=== PATIENT | female | born 1960 | race Caucasian/White ===

== ENCOUNTER → 2016-08-21 | Outpatient (CLI) | payer OTHER | LOC: MMPC 09:00 | PROVIDERS: ATTEND Physician Assistant Medical | DX: J01.00 Acute maxillary sinusitis, unspecified (principal); F32.1 Major depressive disorder, single episode, moderate | CPT/HCPCS: 99213; G0463 ==

== ENCOUNTER → 2016-09-14 | Outpatient (CLI) | payer OTHER | LOC: MMPC 09:00 | PROVIDERS: ATTEND Physician Assistant Medical | DX: R42 Dizziness and giddiness (principal); F32.2 Major depressive disorder, single episode, severe without psychotic features; Z87.74 Personal history of (corrected) congenital malformations of heart and circulatory system | CPT/HCPCS: 99213; G0463 ==

== ENCOUNTER → 2016-10-02 | Outpatient (CLI) | payer OTHER ==
--- NOTE | 2016-10-02 16:45 | DI ---
LEFT KNEE, 10/02/2016 10:08 AM: Clinical History: Left knee pain. Previous Exam: None at this facility. 4 views are submitted. The AP and tunnel projections are weight bearing views. There is no acute soft tissue, osseous, or joint abnormality. There is moderate narrowing of the medial compartment consist ent with degenerative arthritis. There is osteoporosis. Reading: Moderate degenerative arthritis of the medial compartment.
--- NOTE | 2016-10-02 16:48 | DI ---
RIGHT KNEE, 10/02/2016 10:08 AM: Clinical History: Right knee pain. Previous Exam: None at this facility. 4 views are submitted. The AP and tunnel projections are weight bearing views. There is no acute soft tissue, osseous, or joint abnormality. Moderate narrowing of the medial compartment is present indic ating degenerative arthritis. Reading: Degenerative arthritis of the medial compartment.
== END ==
LOC: ORTHO 10:36
PROVIDERS: ATTEND Orthopaedic Surgery
DX: M25.561 Pain in right knee (principal); M25.562 Pain in left knee; M17.0 Bilateral primary osteoarthritis of knee
CPT/HCPCS: 73564; 99203

== ENCOUNTER → 2016-10-05 | Outpatient (CLI) | payer OTHER | LOC: MMPC 09:00 | PROVIDERS: ATTEND Physician Assistant Medical | DX: R53.82 Chronic fatigue, unspecified (principal); Z98.890 Other specified postprocedural states | CPT/HCPCS: 99213; G0463 ==

== ENCOUNTER → 2016-10-08 | Outpatient (CLI) | payer OTHER, BC ==
[2016-10-08 13:10] LABS: BASOPHILS # (AUTO) 0.04 10*3/UL; BASOPHILS % (AUTO) 0.8 % (0-1); EOSINOPHILS # (AUTO) 0.11 10*3/UL; EOSINOPHILS % (AUTO) 2.3 % (0-8); HEMATOCRIT 41.4 % (37.0-47.0); HEMOGLOBIN 12.9 g/dL (12.0-16.0); LYMPHOCYTES # (AUTO) 1.66 10*3/uL; MEAN CORPUSCULAR HEMOGLOBIN 27.6 PG (27-31); MEAN CORPUSCULAR HGB CONC 31.2 g/dL (33-37); MEAN CORPUSCULAR VOLUME 88.5 FL (81-99); MONOCYTES # (AUTO) 0.36 10*3/UL (0.3-0.8); MONOCYTES % (AUTO) 7.4 % (5-15); NEUTROPHILS # (AUTO) 2.71 10*3/UL; NEUTROPHILS % (AUTO) 55.5 % (50-80); RED BLOOD COUNT 4.68 10^6/uL (4.20-5.40)
[2016-10-08 13:20] LABS: CHOL/HDL RATIO 2.27 RATIO (0-4.0); LDL CHOLESTEROL,CALCULATED 59.4 mg/dL; SERUM ALBUMIN 3.8 g/dL (3.5-4.8)
[2016-10-08 13:22] LABS: PLATELET MORPHOLOGY COMMENT NORMAL MORPHOLOGY (NORM); RBC MORPHOLOGY COMMENT NORMAL MORPHOLOGY (NORM); WBC MORPHOLOGY COMMENT NORMAL MORPHOLOGY (NORM)
== END ==
LOC: MOB LAB 10:52
PROVIDERS: ATTEND Physician Assistant Medical
DX: E78.5 Hyperlipidemia, unspecified (principal); R53.82 Chronic fatigue, unspecified; Z98.84 Bariatric surgery status
CPT/HCPCS: 36415; 80053; 80061; 82306; 84443; 85025

== ENCOUNTER → 2016-10-13 | Outpatient (CLI) | payer OTHER ==
--- NOTE | 2016-10-13 13:46 | EKG ---
[address] [place] [address] Measurements Intervals [place] Rate: 74 P: 32 KS: 143 QRS: -81 QRSD: 91 T: 42 QT: 397 QTc: 424 Interpretive Statements SINUS RHYTHM LEFT ANTERIOR HEMIBLOCK LOW QRS VOLTAGE IN PRECORDIAL LEADS POSSIBLE ANTERIOR MYOCARDIAL INFARCTION PROBABLY OLD No previous ECG available for comparison Electronically Signed On 10-13-16 15:10:25 MDT by Edi Hinojosa [id number]
== END ==
LOC: MOB EKG 13:29
PROVIDERS: ATTEND Specialist
DX: E78.5 Hyperlipidemia, unspecified (principal); I20.9 Angina pectoris, unspecified; I44.4 Left anterior fascicular block
CPT/HCPCS: 93005; 93010; 99204

== ENCOUNTER → 2016-10-15 | Outpatient (CLI) | payer OTHER | LOC: MMPC 10:00 | PROVIDERS: ATTEND Podiatrist Foot & Ankle Surgery | DX: M79.671 Pain in right foot (principal); M79.672 Pain in left foot; G62.9 Polyneuropathy, unspecified; M77.42 Metatarsalgia, left foot; M72.2 Plantar fascial fibromatosis; M77.41 Metatarsalgia, right foot | CPT/HCPCS: 20550; 99202; G0463; J0702 ==

== ENCOUNTER → 2016-10-27 | Outpatient (CLI) | payer OTHER | LOC: MMPC 10:00 | PROVIDERS: ATTEND Specialist | DX: R06.02 Shortness of breath (principal); J45.909 Unspecified asthma, uncomplicated; K21.9 Gastro-esophageal reflux disease without esophagitis; E78.5 Hyperlipidemia, unspecified | CPT/HCPCS: 99213; G0463 ==

== ENCOUNTER → 2016-11-18 | Outpatient (CLI) | payer OTHER | LOC: MOB LAB 13:41 | PROVIDERS: ATTEND Physician Assistant Medical | DX: Z98.84 Bariatric surgery status (principal); Z98.890 Other specified postprocedural states; F32.1 Major depressive disorder, single episode, moderate | CPT/HCPCS: 36415; 82607; 82746; 99213; G0463 ==

== ENCOUNTER → 2016-11-19 | Outpatient (CLI) | payer OTHER | LOC: MMPC 10:00 | PROVIDERS: ATTEND Podiatrist Foot & Ankle Surgery | DX: M72.2 Plantar fascial fibromatosis (principal); M79.672 Pain in left foot; M79.671 Pain in right foot; G57.51 Tarsal tunnel syndrome, right lower limb | CPT/HCPCS: 20550; G0463; J0702 ==

== ENCOUNTER → 2016-11-23 | Outpatient (CLI) | payer OTHER ==
--- NOTE | 2016-11-23 16:24 | DI ---
MRI LOW EXTREMITY JNT W/O CN,11/23/2016 9:52 AM: Clinical History: Plantar fascia is of the right foot. Previous Exam: None at this facility. Findings: Multiplanar MR images are obtained through the right foot without contrast. Bony alignment is anatomic and no fractures are seen. Marrow signal is preserved. There is no osteoch ondral defect identified. Subtalar joints are intact. Signal within the musculature is unremarkable. The Achilles tendon is normal. The anterior talofibular ligament is intact. The posterior talofibular ligament is also intact. The extensor tendons are normal. There is a large amount of fluid surrounding the synovial sheath melissa ng the flexor hallucis longus tendon. The deltoid ligamentous complex is intact. There is some mild increased signal of the plantar fascia near the attachment of the plantar fascia o n the calcaneus. Impression: 1. Tenosynovitis of the flexor hallucis longus tendon. 2. Very mild increased signal near the attachment of the plantar fascia on the calcaneus.
== END ==
LOC: MRI 09:47
PROVIDERS: ATTEND Podiatrist Foot & Ankle Surgery
DX: M72.2 Plantar fascial fibromatosis (principal); S93.691A Other sprain of right foot, initial encounter
CPT/HCPCS: 73721

== ENCOUNTER → 2016-11-24 | Outpatient (CLI) | payer OTHER | LOC: MOB LAB 11:36 | PROVIDERS: ATTEND Specialist | DX: R06.02 Shortness of breath (principal); K21.9 Gastro-esophageal reflux disease without esophagitis; E78.5 Hyperlipidemia, unspecified; R53.83 Other fatigue; R10.84 Generalized abdominal pain; R20.0 Anesthesia of skin; E53.8 Deficiency of other specified B group vitamins; K80.20 Calculus of gallbladder without cholecystitis without obstruction; Z98.84 Bariatric surgery status | CPT/HCPCS: 36415; 83880; 99213; G0463; J3420 ==

== ENCOUNTER → 2016-11-26 | Outpatient (CLI) | payer OTHER | LOC: MMPC 09:00 | PROVIDERS: ATTEND Family Medicine | DX: I25.118 Atherosclerotic heart disease of native coronary artery with other forms of angina pectoris (principal); E66.09 Other obesity due to excess calories | CPT/HCPCS: 99213; G0463 ==

== ENCOUNTER → 2016-12-08 | Outpatient (CLI) | payer OTHER | LOC: MMPC 09:00 | PROVIDERS: ATTEND Physician Assistant Medical | DX: G62.9 Polyneuropathy, unspecified (principal); F32.0 Major depressive disorder, single episode, mild | CPT/HCPCS: 99213; G0463 ==

== ENCOUNTER → 2016-12-23 | Outpatient (CLI) | payer OTHER | LOC: MMPC 09:00 | PROVIDERS: ATTEND Physician Assistant Medical | DX: E53.8 Deficiency of other specified B group vitamins (principal) | CPT/HCPCS: G0463; J3420 ==

== ENCOUNTER → 2016-12-29 | Outpatient (CLI) | payer OTHER | LOC: MOB LAB 11:48 | PROVIDERS: ATTEND Physician Assistant Medical | DX: Z11.59 Encounter for screening for other viral diseases (principal); Z48.815 Encounter for surgical aftercare following surgery on the digestive system; F32.0 Major depressive disorder, single episode, mild | CPT/HCPCS: 36415; 86803; 99213; G0463 ==

== ENCOUNTER → 2017-01-25 | Outpatient (CLI) | payer OTHER | LOC: MMPC 09:00 | PROVIDERS: ATTEND Physician Assistant Medical | DX: E53.8 Deficiency of other specified B group vitamins (principal) | CPT/HCPCS: G0463; J3420 ==

== ENCOUNTER 2017-10-18 15:05 | Observation (INO) ==
[2017-10-18] MEDS ORDERED: Ondansetron ODT Tab 8 MG TAB PO ONE (15:19)
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
[2017-10-18] MEDS ORDERED: Sodium Chloride 0.9% 1,000 ML PRIMARY IV ONE (16:36)
[2017-10-18] MEDS ORDERED: fentaNYL Inj 100 MCG/2 ML VIAL IVP ONE (16:48)
[2017-10-18 16:54] LABS: BASOPHILS # (AUTO) 0.03 10*3/UL; BASOPHILS % (AUTO) 0.6 % (0-1); EOSINOPHILS # (AUTO) 0.13 10*3/UL; EOSINOPHILS % (AUTO) 2.5 % (0-8); Hematocrit [HCT] 40.4 % (37.0-47.0); Hemoglobin [HGB] 12.6 g/dL (12.0-16.0); LYMPHOCYTES # (AUTO) 1.45 10*3/uL; MEAN CORPUSCULAR HEMOGLOBIN 28.1 PG (27-31); MEAN CORPUSCULAR HGB CONC 31.2 g/dL (33-37); MEAN PLATELET VOLUME 12.1 FL (7.4-12.2); MONOCYTES # (AUTO) 0.29 10*3/UL (0.3-0.8); MONOCYTES % (AUTO) 5.5 % (5-15); NEUTROPHILS # (AUTO) 3.34 10*3/UL; NEUTROPHILS % (AUTO) 63.6 % (50-80); RED BLOOD COUNT 4.49 10^6/uL (4.20-5.40)
[2017-10-18 16:56] LABS: PLATELET MORPHOLOGY COMMENT NORMAL MORPHOLOGY (NORM); RBC MORPHOLOGY COMMENT NORMAL MORPHOLOGY (NORM); WBC MORPHOLOGY COMMENT NORMAL MORPHOLOGY (NORM)
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
[2017-10-18 17:04] LABS: SERUM ALBUMIN 4.2 g/dL (3.5-4.8)
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
[2017-10-18] MEDS ORDERED: ALBUTEROL SULFATE 8.5 GM HFA INHALER INH PRN (18:47)
[2017-10-18] MEDS ORDERED: LIDOCAINE W/ SODIUM BICARB 0.5 ML SYR SUBD PRN (18:47)
[2017-10-18] MEDS ORDERED: CALCIUM CARBONATE 500 MG (TUMS) CHEWABLE TABLET PO PRN (18:47)
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
[2017-10-18] MEDS ORDERED: Ropinirole Tab 0.25 MG TAB PO SCH (21:00)
[2017-10-18] MEDS: GABAPENTIN 300 MG CAPSULE PO SCH (21:44)
[2017-10-18] MEDS ORDERED: traZODone Tab 50 MG TAB PO SCH (22:00)
[2017-10-18] MEDS ORDERED: Simvastatin Tab 40 MG TAB PO SCH (22:00)
[2017-10-18] MEDS ORDERED: ESCITALOPRAM 10 MG TABLET PO SCH (22:00)
[2017-10-18] MEDS: Acetaminophen 1000mg Inj 1,000 MG/100 ML VIAL IV PRN (22:22)
[2017-10-19] MEDS: Acetaminophen 1000mg Inj 1,000 MG/100 ML VIAL IV PRN (07:52)
[2017-10-19] MEDS ORDERED: Acetaminophen 1000mg Inj 1,000 MG/100 ML VIAL IV PRN (09:00)
[2017-10-19] MEDS ORDERED: Simvastatin Tab 40 MG TAB PO SCH (09:00)
[2017-10-19] MEDS ORDERED: ESCITALOPRAM 10 MG TABLET PO SCH (09:00)
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
[2017-10-19] MEDS: GABAPENTIN 300 MG CAPSULE PO SCH ×2 (09:20→14:17)
[2017-10-19] MEDS: oxyCODONE IR Tab 5 MG TAB PO PRN ×2 (09:20→13:56)
[2017-10-19 11:26] VITALS: O2SAT 94
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
[2017-10-19 16:27] VITALS: BP 107/59; RESP 18; TEMP 97.2
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
== END 2017-10-19 18:07 | disposition home or self-care (01) ==
LOC: MED/SURG 15:05 → ER 15:05
PROVIDERS: ADMIT Surgery; ATTEND Surgery